=== PATIENT | female | born 1990 | race Caucasian/White ===

== ENCOUNTER 2023-08-30 14:44 | Inpatient (IN) ==
[2023-08-30] MEDS ORDERED: LIDOCAINE 1% LOCAL 20 ML VIAL INFIL PRN (14:53)
[2023-08-30] MEDS: LACTATED RINGER'S 1,000 ML IV PRN (15:01)
[2023-08-30] MEDS: PENICILLIN GK 6 MU in DEXTROSE 5% 250 ML IV STA (15:20)
[2023-08-30 15:32] LABS: Hematocrit (blood only) 35.4 % (37.0-47.0); Hemoglobin 11.9 g/dl (12.0-16.0); Mean Corpuscular Hemoglobin 30.6 pg (25.0-34.0); Mean Corpuscular Hgb Conc 33.6 g/dL (32.0-36.0); Platelet Count 228 K/uL (130-400); RDW Coefficient of Variation 13.4 % (11.5-14.5); RDW Standard Deviation 44.3 fL (36.4-46.3); Red Blood Count 3.89 M/uL (4.20-5.40); White Blood Count 11.35 K/ul (4.8-10.8)
[2023-08-30] MEDS: OXYTOCIN 30 UNITS/NSS 30 UNITS/500 ML BAG IV PRN (17:10)
[2023-08-30] MEDS: METHYLERGONOVINE MALEATE 0.2 MG/ML AMP IM ONE (17:15)
[2023-08-30] MEDS ORDERED: HYDROCORTISONE ACETATE 25 MG SUPP PR PRN (17:21)
[2023-08-30] MEDS ORDERED: oxyCODONE/ACETAMINOPHEN 5mg/325mg TAB PO PRN (17:21)
[2023-08-30] MEDS ORDERED: ACETAMINOPHEN W/CODEINE #3 1 TAB PO PRN (17:21)
[2023-08-30] MEDS ORDERED: bisacodyL 10 MG SUPP PR PRN (17:21)
[2023-08-30] MEDS ORDERED: OXYTOCIN 30 UNITS/NSS 30 UNITS/500 ML BAG IV PRN (17:21)
[2023-08-30] MEDS ORDERED: ACETAMINOPHEN 325 MG TAB PO PRN (17:21)
[2023-08-30] MEDS ORDERED: BENZOCAINE 20% SPRY 85 APPLN/85 GM CAN EXT PRN (17:21)
--- NOTE | 2023-08-30 17:27 | Delivery Summary ---
Vaginal Delivery Summary Date of Service August 30, 2023 Vaginal Delivery Summary Patient is followed in the office for care and delivery. Blood types a Enriquez she is beta strep positive. Was admitted in active labor 6 to 7 cm dilated with membranes intact. She was strep positive. She was given 6,000,000 units of IV penicillin. And she delivered over an hour after receiving that initial dose. She delivered a live male infant via direct occiput anterior position over an intact perineum. After delivery of the infant he was suctioned through the mouth and the nose. Cord was allowed to pulse for over 1 minute. Then the cord was clamped cut by the father. After delivery of the 's head there was a huge amount of amniotic fluid. At that time we diagnosed polyhydramnios. With IV Pitocin running and IM Methergine. Placenta was removed intact. Quantitative blood loss was 292 mL. Inspection of the perineum revealed no lacerations. Patient tolerated delivery well.
[2023-08-30] MEDS ORDERED: PENICILLIN GK 3 MU in DEXTROSE 5% 100 ML IV PRN (17:55)
[2023-08-30] MEDS: IBUPROFEN 600 MG TAB PO PRN (18:12)
[2023-08-30] MEDS: DIPHTHER/TETAN/PERTUS Vaccine (Tdap, Adol/Adult) 0.5mL IM ONE (18:39)
[2023-08-30] MEDS: DOCUSATE SODIUM 100 MG CAP PO SCH (20:59)
[2023-08-31 07:28] LABS: Hematocrit (blood only) 32.8 % (37.0-47.0); Hemoglobin 11.1 g/dl (12.0-16.0); Mean Corpuscular Hemoglobin 30.9 pg (25.0-34.0); Mean Corpuscular Hgb Conc 33.8 g/dL (32.0-36.0); Mean Corpuscular Volume 91.4 fL (80.0-100.0); Mean Platelet Volume 10.4 fL (9.4-12.4); Platelet Count 184 K/uL (130-400); RDW Coefficient of Variation 13.1 % (11.5-14.5); RDW Standard Deviation 43.9 fL (36.4-46.3); Red Blood Count 3.59 M/uL (4.20-5.40); White Blood Count 11.79 K/ul (4.8-10.8)
[2023-08-31] MEDS: PRENATAL VITAMIN 1 TAB PO SCH (07:28)
--- NOTE | 2023-08-31 08:56 | Obstetrical Progress Note ---
Date of Service August 31, 2023 Assessment & Plan Admission and Anticipated Discharge Date Admission Date: August 30, 2023 Subjective Patient is seen and examined. She feels well, no complaints. Ambulating without dizziness Voiding without difficulty Tolerating regular diet with out N&V Bleeding is minimal No fever/ chills/ CP/ SOB/ N&V/ Leg pain Breast feeding without problems Vital Signs Temp Pulse Resp BP Pulse Ox O2 Del Method 08/31/23 07:20 36.5 C 61 18 131/81 98 Room Air 08/31/23 04:10 36.5 C 60 16 94/62 L 99 Room Air 08/30/23 22:26 36.5 C 61 16 105/64 99 Room Air Lab Results 08/30/23 08/30/23 08/30/23 Range/Units 15:05 15:05 15:05 WBC 11.35 H (4.8-10.8) K/ul RBC 3.89 L (4.20-5.40) M/uL Hgb 11.9 L (12.0-16.0) g/dl Hct 35.4 L (37.0-47.0) % MCV 91.0 (80.0-100.0) fL MCH 30.6 (25.0-34.0) pg MCHC 33.6 (32.0-36.0) g/dL RDW Std Deviation 44.3 (36.4-46.3) fL RDW Coeff of Daphne 13.4 (11.5-14.5) % Plt Count 228 (130-400) K/uL MPV 10.0 (9.4-12.4) fL Blood Type A Positive Cancelled Antibody Screen NEGATIVE Cancelled 08/31/23 Range/Units 06:46 WBC 11.79 H (4.8-10.8) K/ul RBC 3.59 L (4.20-5.40) M/uL Hgb 11.1 L (12.0-16.0) g/dl Hct 32.8 L (37.0-47.0) % MCV 91.4 (80.0-100.0) fL MCH 30.9 (25.0-34.0) pg MCHC 33.8 (32.0-36.0) g/dL RDW Std Deviation 43.9 (36.4-46.3) fL RDW Coeff of Daphne 13.1 (11.5-14.5) % Plt Count 184 (130-400) K/uL MPV 10.4 (9.4-12.4) fL Blood Type Antibody Screen PE: General: Alert, orientedx3, NAD Abd: soft, NT, fundus firm, below Umbilicus Perineum intact, Lochia rubra minimal Ext; NT, no edema AP: 32 yo s/p , ppd# 1 VSS Afebrile doing well Continue routine care All questions were answered Desires D/C home tonight Discussed when to call Results & Data Vital Signs (Past 12 Hours) Vital Signs Temp Pulse Resp BP Pulse Ox O2 Del Method 08/31/23 07:20 36.5 C 61 18 131/81 98 Room Air 08/31/23 04:10 36.5 C 60 16 94/62 L 99 Room Air 08/30/23 22:26 36.5 C 61 16 105/64 99 Room Air
[2023-08-31] MEDS ORDERED: bisacodyL 5 MG TABEC PO SCH (20:00)
== END 2023-08-31 19:35 | disposition home health service (06) | DRG 807 ==
LOC: OPB 14:44 → 4S1 14:47 → 4E2 20:11
DX: O99.824 Streptococcus B carrier state complicating childbirth; Z37.0 Single live birth; Z3A.39 39 weeks gestation of pregnancy